=== PATIENT | female | born 1955 | race Caucasian/White ===

== ENCOUNTER → 2017-12-17 | Outpatient (CLI) | payer MEDICARE ==
[~2017-12-17] MED LIST: ALEVE220 MG PO; AMBIEN 5 MG TABL5 MG PO; NABUMETONE 750750 M1 PO; NEURONTIN 300300 M1 PO
== END ==
LOC: M.RAD 09:40
DX: J98.4 Other disorders of lung (principal); F17.200 Nicotine dependence, unspecified, uncomplicated

== ENCOUNTER → 2018-08-15 | Outpatient (CLI) | payer MEDICARE | LOC: M.RAD 14:23 | DX: J98.4 Other disorders of lung (principal) ==

== ENCOUNTER → 2018-10-15 | Outpatient (CLI) | payer MEDICARE ==
--- NOTE | 2018-10-16 11:16 | PF ---
[address] [address] PULMONARY FUNCTION REPORT Name: VAUGHANTYRELL Brianna Room: [facility]#: [id number] Admission: 10/15/18 Attend Phys: Cinthia Ag MD Discharge: Date of : 57 Report #: [id number] THIS REPORT FOR: //name// CC: Cinthia Ag REFERRING PHYSICIAN: Cinthia Ag MD TYPE OF STUDY: Pulmonary function test. SPIROMETRY: FEV1/FVC ratio was 51%. The FEV1 was 2.17 liters at 73% predicted post-bronchodilators. The LEP66-54 ratio was at 24% predicted. Total lung capacity was 4.25 liters at 74% predicted. The DLCO was 53% of predicted. IMPRESSION: This pulmonary function test demonstrates obstructive pulmonary defect more severe in the small airway disease with no positive bronchodilator response. Some mild restriction was suggested by low total lung capacity and there is a low DLCO. <ELECTRONICALLY SIGNED> By: Benita Walton MD 10/16/18 1116 [id number] Walton MD /nt
== END ==
LOC: M.PUL 09:30
DX: J98.4 Other disorders of lung (principal); F17.210 Nicotine dependence, cigarettes, uncomplicated

== ENCOUNTER → 2019-06-25 | Outpatient (CLI) | payer MEDICARE | LOC: M.RAD 16:13 | DX: R05 Cough (principal) ==